=== PATIENT | female | born 1985 | race Caucasian/White ===

== ENCOUNTER 2016-10-19 12:13 | Emergency (ER) ==
[2016-10-19 12:19] VITALS: BP 121/80; TEMP 98; BMI 36.4
--- NOTE | 2016-10-19 12:23 | ED.PDOC ---
General ED Provider: Dr. LILIANA DERAS Chief Complaint: Extremity Pain/Injury Stated Complaint: patient states she was pulling an approx 800 pound cart with a new emplyee. states her left shoulder down to mid left forearm was pinned between door and the cart. slight swelling with bruise noted to left forearm with abrasion. Time Seen by Physician: 12:22 Mode of Arrival: Walk-In Information Source: Patient Exam Limitations: No limitations Nursing and Triage Documentation Reviewed and Agree: Yes Musculoskeletal Complaint Exam - Upper Extremity Complaint/Exam Location of Pain: Reports: Left, Elbow, Forearm Mechanism of Injury: Reports: Trauma Onset/Duration: 10 hours Symptoms Are: Still present Timing: Constant Initial Severity: Severe Current Severity: Moderate Location: Reports: Diffuse Character: Reports: Aching, Throbbing Aggravating: Reports: Movement, Lifting, Internal rotation, External rotation, Abduction Alleviating: Reports: None, Compression Related History: Reports: Occupational injury, Dominant hand right. Denies: Similar episode Non-Orthopedic Risk Factors: Reports: None DVT Risk Factors: Reports: None Septic Arthritis Risk Factors: Reports: None Related Surgical History: Reports: None Upper Extremity Findings: Present: Swelling, Tenderness NV Bundle Intact Distal to Injury: Yes Compartment Syndrome Risk Factors: Absent: Pain, Paralysis, Pallor, Pulselessness, Paresthesias Upper Extremity Picture: 1 - pain and tenderness Differential Diagnoses: Contusion, Closed Fracure, Strain, Sprain Review of Systems - Review Of Systems Constitutional: Reports: No symptoms Eyes: Reports: No symptoms Ears, Nose, Mouth, Throat: Reports: No symptoms Respiratory: Reports: Cough Cardiac: Reports: No symptoms GI: Reports: No symptoms : Reports: No symptoms Musculoskeletal: Reports: Joint pain Skin: Reports: No symptoms Neurological: Reports: No symptoms Endocrine: Reports: No symptoms Hematologic/Lymphatic: Reports: No symptoms All Other Systems: Reviewed and Negative Past Medical History - Past Medical History Previously Healthy: Yes Endocrine: Reports: None Cardiovascular: Reports: None Respiratory: Reports: COPD Hematological: Reports: None Gastrointestinal: Reports: None Genitourinary: Reports: None Neuro/Psych: Reports: None Musculoskeletal: Reports: Arthritis, 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, 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) Cancer: Reports: None Last Menstrual Period: last week Other Pertinent Past Medical History: CHRONIC UTICARIA - Surgical History General Surgical History: Reports: None - Family History Family History: Reports: None - Social History Smoking Status: Never smoker Hx Substance Use: No Alcohol Screening: None Physical Exam - Physical Exam Appearance: Well-appearing, Obese Ill-appearing: Moderate Pain Distress: Moderate Eyes: Conjunctiva clear Neck: Supple Respiratory: Airway patent, Breath sounds clear, Breath sounds equal, Respirations nonlabored Cardiovascular: RRR, Pulses normal, No rub, No murmur GI/: Soft, Nontender, No masses, Bowel sounds normal, No Organomegaly Musculoskeletal: Limited ROM (Left shoulder ) Skin: Warm, Dry Neurological: Sensation intact, Motor intact, Reflexes intact, Cranial nerves intact, Alert, Oriented Psychiatric: Anxious Interpretation - Radiology Interpretation Radiology Interpretation By: ED Physician Radiology Results: Negative Exam Interpreted: Other (Elbow, forearm and shoulder on the left ) Critical Care Note - Critical Care Note Total Time (mins): 0 Course - Course Orders, Labs, Meds: Orders Category Date Time Status Hydrocodone Bit/Acetaminophen [Provo 5-325] MEDS 10/19/16 13:12 Discontinued 1 tab PO ONCE STA Ibuprofen [Motrin] MEDS 10/19/16 13:13 Discontinued 800 mg PO ONCE STA ELBOW, LEFT MIN 3 VIEWS Stat RADS 10/19/16 13:13 Taken FOREARM, LEFT 2 VIEWS Stat RADS 10/19/16 13:13 Taken SHOULDER, LEFT MIN 2V Stat RADS 10/19/16 13:13 Taken Medications Discontinued Medications Generic Name Dose Route Start Last Admin Trade Name Chuck PRN Reason Stop Dose Admin Acetaminophen/Hydrocodone Bitart 1 tab 10/19/16 13:12 10/19/16 13:40 Provo 5-325 PO 10/19/16 13:13 1 tab ONCE STA Administration Ibuprofen 800 mg 10/19/16 13:13 10/19/16 13:41 Motrin PO 10/19/16 13:14 800 mg ONCE STA Administration Vital Signs: Temp Pulse Resp BP Pulse Ox 10/19/16 12:14 98.0 F 75 14 121/80 98 Departure - Departure Time of Disposition: 12:41 Disposition: HOME SELF-CARE Discharge Problem: Injury of upper extremity Contusion Qualifiers: Encounter type: initial encounter Contusion area: forearm Laterality: left Qualifier Code: (S50.12XA) Contusion of left forearm, initial encounter Sprain shoulder/arm Qualifiers: Encounter type: initial encounter Laterality: left Qualifier Code: (S43.402A) Unspecified sprain of left shoulder joint, initial encounter Instructions: Shoulder Sprain (ED), Contusion in Adults (ED) Condition: Stable Pt referred to PMD for follow-up: Yes (3 days ) Additional Instructions: Rest Take pain medications as prescribed Follow up with your [facility]ES ADMINISTRATION SPECIALIST or workmans comp doctor Prescriptions: Ibuprofen [Motrin] 600 mg PO Q6H PRN #30 tablet PRN Reason: Analgesia Tramadol HCl [Ultram] 50 mg PO Q6H PRN #20 tablet PRN Reason: Severe Pain Allergies/Adverse Reactions: Allergies No Known Allergies Allergy (Verified 10/19/16 12:18) Home Medications: Ambulatory Orders Ibuprofen [Motrin] 600 mg PO Q6H PRN #30 tablet 10/19/16 Tramadol HCl [Ultram] 50 mg PO Q6H PRN #20 tablet 10/19/16 Transfer Form Completed: Yes Disposition Discussed With: Patient
[2016-10-19] MEDS ORDERED: NORCO 5-325 PO STA (13:12)
[2016-10-19] MEDS ORDERED: MOTRIN PO STA (13:13)
--- NOTE | 2016-10-19 14:40 | DI ---
EXAM: Left forearm two-view HISTORY: Trauma COMPARISON: None FINDINGS: The bones are normal. Alignment is normal. No focal soft tissue abnormality. IMPERSSION: Normal examination.
--- NOTE | 2016-10-19 14:41 | DI ---
EXAM: Left elbow three view HISTORY: Trauma COMPARISON: None FINDINGS: The bones are normal. The alignment is normal. No joint effusion. No focal soft tissue ab normality. IMPRESSION: Normal examination.
--- NOTE | 2016-10-19 14:42 | DI ---
EXAM: Left shoulder three view HISTORY: Trauma COMPARISON: None FINDINGS: The bones are normal. The glenohumeral joint and acromioclavicular joint are normal. No f ocal soft tissue abnormality. Visualized portion of the chest is normal. IMPERSSION: Normal examination.
== END 2016-10-19 14:42 | disposition home or self-care (01) ==
LOC: ED 12:13
DX: S50.12XA Contusion of left forearm, initial encounter (principal); S43.402A Unspecified sprain of left shoulder joint, initial encounter; W20.8XXA Other cause of strike by thrown, projected or falling object, initial encounter
CPT/HCPCS: 99283

== ENCOUNTER 2016-11-24 00:06 | Emergency (ER) | payer OTHER ==
[2016-11-24] MEDS ORDERED: DECADRON 4 MG/ML SDV IM STA (00:31)
[2016-11-24] MEDS ORDERED: BENADRYL IM STA (00:31)
[2016-11-24 01:00] VITALS: BP 123/79; TEMP 98.4; BMI 37.4
--- NOTE | 2016-11-24 01:37 | ED.PDOC ---
General ED Provider: Dr. LAKSHMI ASCENCIO-ER Chief Complaint: Hand Pain/Injury Stated Complaint: my hand is itchy and red Time Seen by Physician: 00:10 Mode of Arrival: Walk-In Information Source: Patient Exam Limitations: No limitations Primary Care Provider: HÉCTOR LINDSEY Nursing and Triage Documentation Reviewed and Agree: Yes Skin Complaint Exam - Skin Rash/Itching Complaint/Exam Onset/Duration: recent Symptoms Are: Still present Initial Severity: Mild Current Severity: Mild Location: palm of right hand Potential Exposures: Reports: Unknown Aggravating: Reports: None Alleviating: Reports: None Associated Signs and Symptoms: Denies: Difficulty breathing, Fever, Chills Skin Findings: Present: Urticaria Differential Diagnoses: Allergic Reaction Review of Systems - Review Of Systems Constitutional: Reports: No symptoms Eyes: Reports: No symptoms Ears, Nose, Mouth, Throat: Reports: No symptoms Respiratory: Reports: No symptoms Cardiac: Reports: No symptoms GI: Reports: No symptoms : Reports: No symptoms Musculoskeletal: Reports: No symptoms Skin: Reports: Rash Neurological: Reports: No symptoms Endocrine: Reports: No symptoms Hematologic/Lymphatic: Reports: No symptoms All Other Systems: Reviewed and Negative Past Medical History - Past Medical History Previously Healthy: Yes Endocrine: Reports: None Cardiovascular: Reports: None Respiratory: Reports: COPD Hematological: Reports: None Gastrointestinal: Reports: None Genitourinary: Reports: None Neuro/Psych: Reports: None Musculoskeletal: Reports: Arthritis, 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, 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) Cancer: Reports: None Last Menstrual Period: 11/04/16 Other Pertinent Past Medical History: CHRONIC UTICARIA - Surgical History General Surgical History: Reports: None - Family History Family History: Reports: None - Social History Smoking Status: Never smoker Hx Substance Use: No Alcohol Screening: None Lives: With family - Immunizations Tetanus Shot up to Date: Yes Physical Exam - Physical Exam Appearance: Well-appearing, No pain distress, Well-nourished Eyes: JOSELYN, EOMI, Conjunctiva clear ENT: Ears normal, Nose normal, Oropharynx normal Neck: Supple Respiratory: Airway patent, Breath sounds clear, Breath sounds equal, Respirations nonlabored Cardiovascular: RRR, Pulses normal, No rub, No murmur GI/: Soft, Nontender, No masses, Bowel sounds normal, No Organomegaly Musculoskeletal: Normal strength, ROM intact, No edema, No calf tenderness Skin: Warm (noted erythema right hand) Neurological: Sensation intact, Motor intact, Reflexes intact, Cranial nerves intact, Alert, Oriented Psychiatric: Affect appropriate, Mood appropriate Re-Evaluation - Re-Evaluation Time of Re-Evaluation: 01:36 Status: Improved (pruritis and swelling resolvd) Vital Signs Stable: Yes Pain Level: 0 Appearance: NAD Lungs: Clear Skin: Warm and Dry Neuro: Alert and Oriented X3 CV: RRR Critical Care Note - Critical Care Note Total Time (mins): 0 Course - Course Orders, Labs, Meds: Orders Category Date Time Status Dexamethasone 4 mg/ml Inj [Decadron 4 mg/ml Sdv] MEDS 11/24/16 00:31 Discontinued 8 mg IM ONCE STA Diphenhydramine Inj [Benadryl] MEDS 11/24/16 00:31 Discontinued 50 mg IM ONCE STA Medications Discontinued Medications Generic Name Dose Route Start Last Admin Trade Name Freq PRN Reason Stop Dose Admin Dexamethasone Sodium Phosphate 8 mg 11/24/16 00:31 11/24/16 00:45 Decadron 4 Mg/Ml Sdv IM 11/24/16 00:32 8 mg ONCE STA Administration Diphenhydramine HCl 50 mg 11/24/16 00:31 11/24/16 00:45 Benadryl IM 11/24/16 00:32 50 mg ONCE STA Administration Vital Signs: Temp Pulse Resp BP Pulse Ox 11/24/16 00:08 98.4 F 86 20 123/79 97 Departure - Departure Time of Disposition: 01:37 Disposition: HOME SELF-CARE Discharge Problem: Allergic reaction Qualifiers: Encounter type: initial encounter Qualifier Code: (T78.40XA) Allergy, unspecified, initial encounter Instructions: General Allergic Reaction (ED) Condition: Good Pt referred to PMD for follow-up: Yes Additional Instructions: mdp--follow with pcp Allergies/Adverse Reactions: Allergies No Known Allergies Allergy (Verified 11/24/16 00:16) Home Medications: Ambulatory Orders Ibuprofen [Motrin] 600 mg PO Q6H PRN #30 tablet 10/19/16 Disposition Discussed With: Patient
== END 2016-11-24 01:42 | disposition home or self-care (01) ==
LOC: ED 00:06
DX: T78.40XA Allergy, unspecified, initial encounter (principal)
CPT/HCPCS: 96372; 99282